=== PATIENT | male | born 1985 | race Caucasian/White ===

== ENCOUNTER 2022-03-22 15:44 | Emergency (ER) | payer SELFPAY ==
[~2022-03-22] VITALS: Ht 185.4 cm; Wt 102.1 kg
--- NOTE | 2022-03-22 15:45 | NUR ---
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 TO ER BED 12
[2022-03-22] MEDS ORDERED: ACETAMINOPHEN ES 500 MG TABLET ONE (16:16)
[2022-03-22] MEDS: ACETAMINOPHEN ES 500 MG TABLET PO ONE (16:17)
--- NOTE | 2022-03-22 16:20 | NUR ---
Pt to CT head. Pt remains AAOx4. No distress noted. Tylenol given as ordered. Cont to Observe.
[2022-03-22] MEDS: BACI/NEOM/POLY B OINT PKT 1 UDPKT PACKET TP ONE (16:30)
[2022-03-22] MEDS: LIDOCAINE HCL/PF 1% 30 ML VIAL TP ONE (16:54)
[2022-03-22] MEDS ORDERED: IBUP-1955 PO ×2 (17:26→17:46)
[2022-03-22 18:20] VITALS: BP 123/77
--- NOTE | 2022-03-22 18:20 | NUR ---
Patient discharged to home in stable condition. Written and verbal after care instructions given. Patient verbalizes understanding of instruction.
== END 2022-03-22 18:20 | disposition home or self-care (01) ==
LOC: ER 15:51
DX: S01.01XA Laceration without foreign body of scalp, initial encounter (principal); Z60.2 Problems related to living alone; Z79.1 Long term (current) use of non-steroidal anti-inflammatories (NSAID); W20.8XXA Other cause of strike by thrown, projected or falling object, initial encounter; Y93.89 Activity, other specified; Y92.89 Other specified places as the place of occurrence of the external cause; Y99.8 Other external cause status
CPT/HCPCS: 99284; 70450; 12004; J3490; A6403